=== PATIENT | female | born 1980 | race African-American/Black ===

== ENCOUNTER 2019-05-13 13:20 | Outpatient (CLI) | payer OTHER ==
[~2019-05-13] VITALS: Ht 162.6 cm; Wt 102.1 kg
[2019-05-13] MEDS ORDERED: no medication (14:56)
[2019-05-13 14:57] VITALS: BP 113/57
--- NOTE | 2019-05-14 00:30 | Consultation ---
DATE OF CONSULTATION: 05/13/2019 GASTROENTEROLOGY CONSULTATION CHIEF COMPLAINT: Referral for nausea, vomiting, and abdominal pain. HISTORY OF PRESENT ILLNESS: This is a pleasant 38-year-old female with morbid obesity status post sleeve gastrectomy in October of 2018. Apparently, she was doing well. She lost about 80 pounds. Since a [id number] ago, started having nausea and vomiting. Water goes down okay, but as soon as she eats any food, it goes down, and comes back up. So, the patient was referred for possible endoscopy. PAST MEDICAL HISTORY: 1. Bradycardia. 2. Depression. 3. GERD. 4. Obesity. 5. Fatty liver. 6. Hiatal hernia. 7. Asthma. 8. Hypertension. PAST SURGICAL HISTORY: Laparoscopic sleeve in October 2018. MEDICATIONS: Please see medication reconciliation list. ALLERGIES: No known drug allergies. FAMILY HISTORY: No family history of GI malignancies. SOCIAL HISTORY: The patient denies any tobacco, alcohol, or drug abuse. REVIEW OF SYSTEMS: A 10-point review of systems was performed and positive for abdominal pain, constipation, nausea, and vomiting. PHYSICAL EXAMINATION: VITAL SIGNS: Temperature 97.8, pulse is 60, respirations 20, and blood pressure 113/57. HEENT: Normocephalic and atraumatic. Sclerae anicteric. NECK: Supple. No evidence of obvious lymphadenopathy. CARDIOVASCULAR: Regular rate and rhythm. Plus S1 and S2. No obvious murmur. LUNGS: Clear to auscultation bilaterally. ABDOMEN: Positive bowel sounds. Soft and nontender. No rebound. No guarding. No peritoneal sign. EXTREMITIES: No cyanosis. No clubbing. No edema. ASSESSMENT AND PLAN: A 38-year-old female with post gastric sleeve surgery with now vomiting. Plan to do an endoscopy to rule out anastomotic stricture to evaluate for the cause of vomiting. The patient also has mentioned that she was told that she has gallstones, but at this time, symptoms unlikely to be secondary to gallstones. I want to thank for this kind referral. Darryn May M.D. DR: ZAYRA JOB#: [id number] CC:
== END 2019-05-13 15:04 | disposition home or self-care (01) ==
LOC: PAN 13:20
DX: R11.2 Nausea with vomiting, unspecified (principal); R10.9 Unspecified abdominal pain; F32.9 Major depressive disorder, single episode, unspecified; K21.9 Gastro-esophageal reflux disease without esophagitis; I10 Essential (primary) hypertension; Z98.84 Bariatric surgery status
CPT/HCPCS: 99202

== ENCOUNTER 2019-07-29 13:27 | Outpatient (CLI) | payer MEDICAID ==
[~2019-07-29 13:27] MED LIST: no medication
--- NOTE | 2019-07-29 14:47 | General Progress Note ---
Assessment/Plan Assessment/Plan: post sleeve surgery chronic nausea s/p EGD trial of reglan Subjective ROS Limited/Unobtainable: Yes Allergies: Coded Allergies: No Known Allergies (Unverified , 05/13/19) Objective General Appearance: alert EENT: normal ENT inspection Neck: supple Cardiovascular: normal rate Respiratory/Chest: decreased breath sounds Abdomen: normal bowel sounds, non tender, soft Extremities: non-tender Darryn May MD Jul 29, 2019 14:47
[2019-07-29 16:00] VITALS: BP 127/77
== END 2019-07-29 15:27 | disposition home or self-care (01) ==
LOC: PAN 13:27
DX: R11.0 Nausea (principal); Z98.84 Bariatric surgery status
CPT/HCPCS: 99212